=== PATIENT | male | born 1995 | race Caucasian/White ===

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

== ENCOUNTER 2018-03-08 16:07 | Inpatient (IN) | payer OTHER ==
--- NOTE | 2018-03-08 16:41 | ED ---
Psychiatric Complaint - HPI Summary HPI Summary: This patient is a 22 year old male brought to [facility] by police with a chief complaint of SI since earlier today. Patient states that he has a hx of depression and sees a therapist. Patient states that he did not have any plans for SI, but while he was taking a walk, he felt that it would ok if I just didn t make it back home. Patient spoke to his therapist about his feelings and how he felt unsafe with his own thoughts and he was referred to the ED. The pain is rated 4/10 in severity. Symptoms aggravated by nothing. Symptoms alleviated by nothing. - History Of Current Complaint Chief Complaint: EDMentalHealth Time Seen by Provider: 03/08/18 16:32 Hx Obtained From: Patient Onset/Duration: Lasting Hours, Still Present Timing: Constant Severity Currently: Mild Character: Depressed Aggravating Factor(s): Nothing Alleviating Factor(s): Nothing Has Suicidal: Reports: Thoughts. Denies: With A Plan - Allergies/Home Medications Allergies/Adverse Reactions: Allergies Allergy/AdvReac Type Severity Reaction Status Date / Time No Known Allergies Allergy Verified 03/08/18 16:29 Home Medications: Home Medications NK [No Home Medications Reported] 03/08/18 [History Confirmed 03/08/18] PMH/Surg Hx/FS Hx/Imm Hx Previously Healthy: Yes Opthamlomology History: Denies: Hx Legally Blind EENT History: Denies: Hx Deafness Neurological History: Reports: Other Neuro Impairments/Disorders - Concussion Psychiatric History: Reports: Hx Depression Infectious Disease History: No Infectious Disease History: Reports: Traveled Outside the [place] in Last 30 Days - [place] - Family History Known Family History: Positive: Diabetes, Other - Tonsillitis, tonsillectomy - Social History Occupation: Student Alcohol Use: Weekly Hx Substance Use: Yes Substance Use Type: Reports: Marijuana Hx Tobacco Use: No Smoking Status (MU): Never Smoked Tobacco Review of Systems Negative: Fever Positive: Depressed All Other Systems Reviewed And Are Negative: Yes Physical Exam - Summary Physical Exam Summary: Appearance: Well-appearing, Well-nourished, lying in bed comfortably Skin: Warm, dry, no obvious rash Eyes: sclera anicteric, no conjunctival pallor ENT: mucous membranes moist, pharynx appears normal Neck: Supple, nontender Respiratory: Clear to auscultation, no signs of respiratory distress Cardiovascular: Normal S1, S2. No murmurs. Normal distal pulses in tibial and radial bilaterally. Abdomen: Soft, nontender, normal active bowel sounds present Musculoskeletal: Normal, Strength/ROM Intact Neurological: A&Ox3, awake and alert, mentation is normal, speech is fluent and appropriate Psychiatric: affect is normal Triage Information Reviewed: Yes Vital Signs On Initial Exam: Initial Vitals Temp Pulse Resp BP Pulse Ox 99.4 F 78 16 152/78 96 03/08/18 16:22 03/08/18 16:22 03/08/18 16:22 03/08/18 16:22 03/08/18 16:22 Vital Signs Reviewed: Yes Diagnostics - Vital Signs Vital Signs Temp Pulse Resp BP Pulse Ox 03/08/18 16:22 99.4 F 78 16 152/78 96 - Laboratory Result Diagrams: 03/08/18 16:41 03/08/18 16:41 Lab Statement: Any lab studies that have been ordered have been reviewed, and results considered in the medical decision making process. Course/Dx - Course Course Of Treatment: This is a 22-year-old college student with depression and suicidal ideation, who does not have any significant medical issues. He is medically clear for mental health evaluation. Assessment/Plan: This patient is a 22 year old male brought to [facility] by police with a chief complaint of SI since earlier today. Patient states that he has a hx of depression and sees a therapist. Patient states that he did not have any plans for SI, but while he was taking a walk, he felt that it would ok if I just didnt make it back home. Patient will be signed out to Dr. Patrick at end of shift, pending MHE. The patient is agreeable with this plan. Discharge - Sign-Out/Discharge Documenting (check all that apply): Sign-Out Patient Signing out patient TO: Eva Patrick - Discharge Plan Referrals: [facility], [Primary Care Provider] - - Attestation Statements Document Initiated by Scribe: Yes Documenting Scribe: Venice Flor Provider For Whom Lillyibe is Documenting (Include Credential): Eduardo Crenshaw MD Scribe Attestation: Venice Rea, scribed for Eduardo Crenshaw MD on 03/08/18 at 2205.
[2018-03-08 16:54] LABS: ABS Basophils 0 10^3/ul (0-0.2); ABS Eosinophils 0.1 10^3/ul (0-0.6); ABS Lymphocytes 1.8 10^3/ul (1.0-4.8); ABS Neutrophils 7.6 10^3/ul (1.5-7.7); ABS Nucleated RBC 0 10^3/ul; Eosinophil % 0.8 % (0-6); Hematocrit 46 % (42-52); Hemoglobin 15.3 g/dl (14.0-18.0); Lymphocyte % 17.4 % (25-47); Mean Corpuscular HGB Conc 33 g/dl (31-36); Mean Corpuscular Hemoglobin 30 pg (27-31); Mean Corpuscular Volume 90 fL (80-94); Mean Platelet Volume 8.1 um3 (7.4-10.4); Nucleated Red Blood Cells % 0.1; Platelet Count 315 10^3/ul (150-450); Red Cell Distribution Width 13 % (10.5-15); White Blood Count 10.5 10^3/ul (3.5-10.8)
[2018-03-08 17:18] LABS: EGFR Non-African American 92.1 (>60)
--- NOTE | 2018-03-08 22:52 | ED ---
Progress - Progress Note Progress Note: SIGN-OUT FROM DR. CRENSHAW AT SHIFT CHANGE PENDING MHE. At 1042: Per MH soil tester: Dr. Meza psych, wants to hold pt for MH re-eval. Course/Dx - Course Course Of Treatment: SIGN-OUT FROM DR. CRENSHAW AT SHIFT CHANGE PENDING MHE. At 1042: Per MH soil tester: belem Rebolledo, wants to hold pt for MH re-eval. - Diagnoses Provider Diagnoses: Depression Discharge - Sign-Out/Discharge Documenting (check all that apply): Sign-Out Patient, Receiving Sign-Out Signing out patient TO: Eduardo Stevens - pending re-eval MHE Receiving patient FROM: Eduardo Crenshaw - pending MHE - [facility] AP[facility], OTHER] - - Attestation Statements Document Initiated by Scribe: Yes Documenting Scribe: Ronnie Rico Provider For Whom Scribe is Documenting (Include Credential): Dr. Bobby Patrick MD Scribe Attestation: I, Ronnie Rico, scribed for Dr. Bobby Patrick MD on 03/09/18 at 0656.
--- NOTE | 2018-03-09 07:09 | ED ---
Progress - Progress Note Progress Note: SIGN-OUT FROM DR. PATRICK AT SHIFT CHANGE PENDING MHE re-eval, as desired by Dr. Meza, psych, at 10:42 03/08/18. - Consult/PCP Time Called: 16:22 Course/Dx - Course Course Of Treatment: SIGN-OUT FROM DR. PATRICK AT SHIFT CHANGE PENDING MHE re-eval , as desired by Dr. Meza, psych, at 10:42 03/08/18. Mr. Vaz was evaluated and they felt that he was a danger to himself and offered him a voluntary admission. He was not willing so they commited him involuntarily. - Diagnoses Provider Diagnoses: Depression Discharge - Sign-Out/Discharge Documenting (check all that apply): Receiving Sign-Out Receiving patient FROM: Eva Patrick - Discharge Plan Referrals: [facility], [Z.BUSINESS, APPLICATION, OTHER] - - Attestation Statements Document Initiated by Scribe: Yes Documenting Scribe: Timur Fofana Provider For Whom Scribe is Documenting (Include Credential): Eduardo Stevens MD Scribe Attestation: Timur Rea, scribed for Eduardo Stevens MD on 03/09/18 at 1144. Scribe Documentation Reviewed: Yes Provider Attestation: The documentation as recorded by the Timur bridges accurately reflects the service I personally performed and the decisions made by me, Eduardo Stevens MD
[2018-03-09] MEDS ORDERED: Mirtazapine TAB* 15 MG PO PRN (14:08)
[2018-03-09] MEDS ORDERED: hydrOXYzine HCL TAB* 50 MG PO PRN (14:08)
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
[2018-03-10] MEDS ORDERED: Mirtazapine TAB* 15 MG PO SCH (21:00)
[2018-03-11 08:20] VITALS: BP 121/67
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
== END 2018-03-11 14:07 | disposition home or self-care (01) | DRG 885 ==
LOC: ED 16:07 → BSU 03-09 11:43
PROVIDERS: ADMIT Psychiatry & Neurology Psychiatry; ATTEND Psychiatry & Neurology Psychiatry
DX: F33.2 Major depressive disorder, recurrent severe without psychotic features (principal); R45.851 Suicidal ideations; F41.9 Anxiety disorder, unspecified; F12.10 Cannabis abuse, uncomplicated; F10.10 Alcohol abuse, uncomplicated; Y90.9 Presence of alcohol in blood, level not specified; Z81.1 Family history of alcohol abuse and dependence; Z83.3 Family history of diabetes mellitus
CPT/HCPCS: 36415; 80053; 80307; 85025; 90686; 96102; 99222; 99238; 99284; A9270-GY